=== PATIENT | female | born 1970 | race Caucasian/White ===

== ENCOUNTER 2022-10-17 15:01 | Emergency (ER) | payer MEDICAID ==
[~2022-10-17] VITALS: Ht 160 cm; Wt 60.0 kg
[2022-10-17 15:16] VITALS: BP 130/91; PULSE 82; RESP 20; TEMP 98.9; O2SAT 100
[2022-10-17] MEDS ORDERED: ALBU18HF2 IH (16:06)
== END 2022-10-17 16:18 | disposition home or self-care (01) ==
LOC: ER 15:01
DX: J45.909 Unspecified asthma, uncomplicated (principal); Z76.0 Encounter for issue of repeat prescription
CPT/HCPCS: 99281